=== PATIENT | female | born 1995 | race Caucasian/White ===

== ENCOUNTER 2018-01-31 16:34 | Emergency (ER) | payer OTHER ==
[~2018-01-31] VITALS: Ht 170.2 cm; Wt 59.0 kg
[~2018-01-31 16:34] MED LIST: AMBIEN10 MG PO; BENTYL20 MG PO; CIPRO500 MG PO; EURAX60 GM TOP; FLAGYL500 MG PO; GABAPENTIN100 MG; KEFLEX250 MG PO; KETOROLAC TROME10 MG PO; LATUDA20 MG PO; LOW-OGESTREL1 EACH PO; MINIPRESS2 MG; NEXPLANON68 MG SUB-Q; PNV PRENATAL P1 EACH PO; PROMETHAZINE HC25 M1 PO; PROMETHAZINE-COD5 ML PO; VISTARIL50 MG PO; WELLBUTRIN SR100 MG; XANAX0.25 MG PO; ZOFRAN4 MG PO; ZOLOFT50 MG
== END 2018-01-31 18:43 | disposition home or self-care (01) ==
LOC: ED 16:34
DX: R44.1 Visual hallucinations (principal); F32.9 Major depressive disorder, single episode, unspecified; F41.9 Anxiety disorder, unspecified; Z88.8 Allergy status to other drugs, medicaments and biological substances; Z88.2 Allergy status to sulfonamides
CPT/HCPCS: 80053; 81001; 85025; 99283

== ENCOUNTER 2021-03-17 12:00 | Day surgery (SDC) | payer OTHER ==
[~2021-03-17] VITALS: Ht 170.2 cm; Wt 65.0 kg
[~2021-03-17 12:00] MED LIST changes: +CRESTOR40 MG NG; +PRISTIQ ER25 MG PO; +TRAZODONE HCL50 MG PO; +UNISOM SLEEPMEL25 MG PO
--- NOTE | 2021-03-17 14:00 | NUR ---
03/17/21 1400 C[address]head 1355-PATIENT ARRIVED TO PACU ON 2L NC RR EVEN. PATIENT AWAKE DROWSY DENIES PAIN OR NAUSEA. ABDOMEN SOFT. IVF INFUSING. PATIENT ORIENTED TO PACU. LAYING LEFT LATERAL. PATIENT DOZES TO SLEEP.
--- NOTE | 2021-03-18 10:59 | PATH ---
[facility] [address] [place], [place] [address] Signed SPECIMEN(S): A CECUM SPECIMEN(S): B RECTUM SPECIMEN SOURCE: A. CECUM B. RECTUM CLINICAL HISTORY: Colonoscopy with poss. biopsies. Rectal bleeding. Postop: Normal appearing. MICROSCOPIC DESCRIPTION: Histologic sections of all submitted blocks are examined by light microscopy. These findings, together with the gross examination, support the pathologic diagnosis. FINAL PATHOLOGIC DIAGNOSIS: A. Colon, cecum, biopsy: - Colonic mucosa with no histopathologic abnormality. - Negative for active, chronic, or microscopic colitis. - Negative for dysplasia or malignancy. B. Rectum, biopsy: - Rectal mucosa with mild mucosal hemorrhage. - Negative for active, chronic, or microscopic colitis. - Negative for dysplasia or malignancy. - See comment. COMMENT: Regarding specimen B: Mild hemorrhage is present within the lamina propria of the rectal biopsy, but there is no lamina propria hyalinization, mucosal injury, or crypt dropout to suggest ischemia. Fibrin thrombi are not identified in the mucosal vessels. The findings are nonspecific, but could be secondary to procedure. Clinical correlation required. NAL:cml:C2NR GROSS DESCRIPTION: Two specimens are received in two containers, labeled "RB." A. The specimen, labeled "RB, cecum biopsy," is received in formalin and consists of one avitia soft tissue fragment that measures 0.3 cm in greatest dimension. The specimen is entirely submitted in cassette (A1). B. The specimen, labeled "RB, rectum biopsy," is received in formalin and PATIENT NAME: EMIL ORTIZ PATHOLOGY DATE OF : [birth year] REPORT #: [id number] PHYSICIAN: CLAUDIA PAULA PCP: NO PRIMARY CARE PHYSICIAN REPORT IS CONFIDENTIAL AND NOT TO BE RELEASED WITHOUT AUTHORIZATION [facility] [address] [place] [address] Signed consists of two avitia soft tissue fragments that measure 0.1 cm in greatest dimension. The specimen is entirely submitted in cassette (B1). JS (under the direct supervision of a pathologist) The Gross Description was prepared using a voice recognition system. The report was reviewed for accuracy; however, sound-alike word errors, addition and/or deletions may occur. If there is any question about this report, please contact Client Services. PERFORMING LABORATORY: The technical component was performed by [employer] [address] (Furnace Combination Analyst: Olga Song MD; CLIA# [id number]). [facility] [address] [place] [id number] (CLIA# [id number]). Diagnostician: Marina Cody MD Pathologist Electronically Signed 03/18/2021 Copies: ~ PATIENT NAME: EMIL ORTIZ PATHOLOGY DATE OF : [birth year] REPORT #: [id number] PHYSICIAN: CLAUDIA PATHOLOGY PCP: NO PRIMARY CARE PHYSICIAN REPORT IS CONFIDENTIAL AND NOT TO BE RELEASED WITHOUT AUTHORIZATION
--- NOTE | 2021-03-21 10:51 | OR ---
[facility] [address] [place], [place] [address] Signed DATE OF OPERATION: 03/17/2021 SURGEON: Dc Freitas MD PREOPERATIVE DIAGNOSIS: Episodic rectal bleeding. POSTOPERATIVE DIAGNOSIS: Internal hemorrhoidal changes. PROCEDURE: Total colonoscopy to the cecum with biopsy of cecum and rectum. ANESTHESIA: Intravenous sedation, fentanyl 200 mcg and Versed 7 mg. INDICATION: This 25-year-old white woman is from [place] and is a patient of Dr. Awais Contreras. She is at least 20 months from her 1st child. She has been bothered by persistent and unrelenting episodic bright red rectal bleeding, which is painless. Clinical history sounds consistent with hemorrhoidal bleeding. She is admitted at this time to undergo colonoscopy to assess for other etiologies of rectal bleeding including inflammatory bowel disease, neoplasm, and so on. She understands the risks of bleeding, infection, and perforation related to colonoscopy and wished to proceed. FINDINGS: The prep was excellent. Complete colonoscopy was undertaken of the cecum. The colon throughout looked normal. Biopsies were taken of the cecum and rectum to assess for occult colitis. Internal hemorrhoidal changes which were not profound were noted, however, and most likely rectal bleeding has been related to hemorrhoids. DESCRIPTION OF PROCEDURE: The patient was brought to the endoscopy suite and placed in the lateral decubitus position, given intravenous sedation to the point of slurred speech and nystagmus. Digital rectal examination was normal. An Olympus video colonoscope was passed in the rectum and manipulated throughout the colon ultimately intubating the cecum itself. Abdominal wall stabilization was required Electronically Signed By: DC FREITAS MD 03/21/21 8900 PATIENT NAME: EMIL ORTIZ OPERATIVE REPORT DATE OF : [birth year] REPORT #: [id number] PHYSICIAN: DC FREITAS MD PCP: NO PRIMARY CARE PHYSICIAN REPORT IS CONFIDENTIAL AND NOT TO BE RELEASED WITHOUT AUTHORIZATION [facility] [address] [place], [place] [address] Signed at one point. An excellent prep was noted. The ileocecal valve was identified and biopsy of the cecum was undertaken to assess for occult colitis. The scope was withdrawn from that point and careful examination upon withdrawal of the scope showed no sign of polyps, diverticular formation, colitis, cancer, or other issue. Retroflexed view did confirm internal hemorrhoidal changes, however. There was no sign of active bleeding at this time. The scope was removed and the patient was taken to the recovery room in good condition. CONCLUDING DIAGNOSIS: Most likely her bleeding is related to hemorrhoidal changes. PLAN: We will initiate a fiber supplement at this time. If she has any further bleeding, then I would recommend hemorrhoidal banding in the office setting. We will review this with her further. MD DANIELLA Lainez/JIMY /[id number] cc: Awais Contreras DO Copies: AWAIS CONTRERAS DO ~ Electronically Signed By: DC FREITAS MD 03/21/21 1051 PATIENT NAME: EMIL ORTIZ OPERATIVE REPORT DATE OF : [birth year] REPORT #: [id number] PHYSICIAN: DC FREITAS MD PCP: NO PRIMARY CARE PHYSICIAN REPORT IS CONFIDENTIAL AND NOT TO BE RELEASED WITHOUT AUTHORIZATION
== END 2021-03-17 14:40 | disposition home or self-care (01) ==
LOC: DS 12:00 → OPS 12:00 → DS 13:00 → OPS 13:00
PROVIDERS: ATTEND Surgery
PROC: 0DBH8ZZ Excision of Cecum, Via Natural or Artificial Opening Endoscopic (ICD-10-PCS; principal; 2021-03-17 13:00)
DX: K62.5 Hemorrhage of anus and rectum (principal); K64.8 Other hemorrhoids; K90.0 Celiac disease; Z88.8 Allergy status to other drugs, medicaments and biological substances; Z88.2 Allergy status to sulfonamides; Z88.1 Allergy status to other antibiotic agents
CPT/HCPCS: 84703; 99153; G0500; J2250; J3010

== ENCOUNTER 2021-10-31 14:58 | Emergency (ER) | payer OTHER ==
[~2021-10-31] VITALS: Ht 170.2 cm; Wt 65.8 kg
[2021-10-31] MEDS ORDERED: QUETIAPINE FUMA50 MG PO (17:19)
[2021-10-31] MEDS ORDERED: FLUOXETINE HCL40 MG PO (17:19)
[2021-10-31] MEDS ORDERED: OXCARBAZEPINE300 MG PO (17:19)
== END 2021-10-31 19:05 | disposition home or self-care (01) ==
LOC: ED 14:58
DX: S60.222A Contusion of left hand, initial encounter (principal); W18.39XA Other fall on same level, initial encounter; Z88.2 Allergy status to sulfonamides; Z88.1 Allergy status to other antibiotic agents; Z88.8 Allergy status to other drugs, medicaments and biological substances; Z79.899 Other long term (current) drug therapy
CPT/HCPCS: 73130; 99283-25